=== PATIENT | male | born 1975 | race Two or more races ===

== ENCOUNTER 2021-11-08 09:38 | Emergency (ER) | payer BC ==
[~2021-11-08] VITALS: Ht 177.8 cm; Wt 83.9 kg
[2021-11-08 09:47] VITALS: BP 136/75
[2021-11-08] MEDS ORDERED: DIPH50CA4 PO (10:14)
[2021-11-08] MEDS ORDERED: CEFTRIAXONE 500 MG VIAL ONE (10:19)
[2021-11-08] MEDS ORDERED: LIDOCAINE /MPF 1% VIAL 5 ML VIAL ONE (10:19)
[2021-11-08] MEDS ORDERED: AZITHROMYCIN 250 MG TABLET ONE (10:20)
[2021-11-08] MEDS ORDERED: CEFTRIAXONE 500 MG VIAL IM ONE (10:30)
[2021-11-08] MEDS ORDERED: AZITHROMYCIN 250 MG TABLET PO ONE (10:30)
--- NOTE | 2021-11-08 10:32 | NUR ---
Patient discharged to home in stable condition. Written and verbal after care instructions given. Patient verbalizes understanding of instruction.
== END 2021-11-08 10:33 | disposition home or self-care (01) ==
LOC: ER 09:50
DX: A64 Unspecified sexually transmitted disease (principal); R21 Rash and other nonspecific skin eruption; Z79.899 Other long term (current) drug therapy
CPT/HCPCS: 99283; 96372; J0696; J3490